=== PATIENT | female | born 1970 | race Caucasian/White ===

== ENCOUNTER 2018-02-19 12:13 | Emergency (ER) | payer MEDICAID ==
[~2018-02-19] VITALS: Ht 154.9 cm; Wt 77.3 kg
[~2018-02-19 12:13] MED LIST: CLIN150C8 PO; CLIN300C85 PO; HYDR-4383 PO
[2018-02-19 13:08] LABS: URINE HCG NEGATIVE (NEG)
[2018-02-19 13:18] LABS: UA COLLECTION TYPE CLN CATCH MIDSTREAM
[2018-02-19 13:19] LABS: CLARITY,URINE SLIGHTLY CLOUDY (Clear); COLOR,URINE ORANGE (Yellow)
[2018-02-19 13:21] LABS: BACTERIA,URINE 1+ /HPF (Neg); RBC,URINE 0-2 /HPF (0-2); SQUAMOUS EPITHELIAL CELL,UR MODERATE /LPF (FEW); WBC CLUMPS,URINE FEW /HPF (NEGATIVE)
[2018-02-19 13:22] LABS: TRICHOMONAS,URINE FEW /HPF (NEGATIVE); YEAST MODERATE /HPF (NEGATIVE)
[2018-02-19] MEDS ORDERED: CEPH500C5 PO (14:52)
[2018-02-19 15:01] VITALS: BP 117/80
== END 2018-02-19 15:01 | disposition home or self-care (01) ==
LOC: ER 12:13
DX: N39.0 Urinary tract infection, site not specified (principal); Z88.1 Allergy status to other antibiotic agents; Z79.2 Long term (current) use of antibiotics; Z79.899 Other long term (current) drug therapy
CPT/HCPCS: 81001; 81025; 87088; 99283

== ENCOUNTER 2019-10-04 10:48 | Emergency (ER) | payer MEDICAID, OTHER ==
[~2019-10-04] VITALS: Ht 152.4 cm; Wt 66.4 kg
[~2019-10-04 10:48] MED LIST changes: +CLIN-97 PO; -CLIN300C85 PO
[2019-10-04] MEDS ORDERED: TRAM50TA2 PO (11:33)
[2019-10-04] MEDS ORDERED: DOXY100C76 PO (11:33)
[2019-10-04 11:48] VITALS: BP 115/89
== END 2019-10-04 12:47 | disposition home or self-care (01) ==
LOC: ER 10:48
DX: L03.011 Cellulitis of right finger (principal); Z79.2 Long term (current) use of antibiotics
CPT/HCPCS: 29130; 99283

== ENCOUNTER 2020-01-03 16:43 | Emergency (ER) | payer MEDICAID, OTHER ==
--- NOTE | 2020-01-03 17:22 | NUR ---
Not in lobby after three calls. Discussed with Dr Chavira, no need to call pt to return
== END 2020-01-03 17:17 | disposition left against medical advice (07) ==
LOC: ER 16:44
DX: L02.91 Cutaneous abscess, unspecified (principal); Z53.21 Procedure and treatment not carried out due to patient leaving prior to being seen by health care provider

== ENCOUNTER 2020-01-09 04:48 | Emergency (ER) | payer OTHER ==
[~2020-01-09] VITALS: Ht 152.4 cm; Wt 72.7 kg
[2020-01-09 04:50] VITALS: BP 108/90
--- NOTE | 2020-01-09 06:16 | NUR ---
pt throwing a temper tantrum in the lobby because there is not a room for her yet. Informed her that is not tolerated. She asked me to call her friend Mary Lou at [phone] for her to come back and to bring her stuff and phone and cigarettes. I am calling but there is no answer and it just rings. No voicemail. Pt informed. So now she wants me to call her daughter. I did get ahold of her and she is coming. [phone] Yandy.
[2020-01-09] MEDS ORDERED: sulfamethoxazole/trimethoprim DS (800/160mg) tablet PO ONE (06:55)
[2020-01-09] MEDS ORDERED: TETanus/Pertussis (Acell)/Diphther VAC/PF (Tdap-Adult) 0.5ml syringe IMVAC ONE (06:55)
[2020-01-09] MEDS ORDERED: acetaminophen 325mg tablet PO ONE (06:55)
[2020-01-09] MEDS ORDERED: ibuprofen tablet 400 MG TABLET PO ONE (06:55)
[2020-01-09] MEDS ORDERED: bacitracin 15gm ointment TP ONE (06:55)
[2020-01-09] MEDS ORDERED: ondansetron 4mg rapidly disintigrating tab PO ONE (06:55)
[2020-01-09] MEDS ORDERED: SULF1TAB49 PO (07:38)
== END 2020-01-09 08:44 | disposition home or self-care (01) ==
LOC: ER 04:49
DX: L02.211 Cutaneous abscess of abdominal wall (principal); L03.311 Cellulitis of abdominal wall; F15.90 Other stimulant use, unspecified, uncomplicated; Z87.440 Personal history of urinary (tract) infections; Z88.1 Allergy status to other antibiotic agents; Z79.2 Long term (current) use of antibiotics
CPT/HCPCS: 10060; 90471; 90715; 99284

== ENCOUNTER 2020-03-22 15:24 | Emergency (ER) | payer MEDICAID ==
[~2020-03-22] VITALS: Ht 154.9 cm; Wt 70.0 kg
[2020-03-22 15:30] VITALS: BP 120/79
[2020-03-22] MEDS ORDERED: SULF1TAB49 PO (16:09)
[2020-03-22] MEDS ORDERED: CEPH250T PO (16:09)
== END 2020-03-22 16:40 | disposition home or self-care (01) ==
LOC: ER 15:25
DX: S81.802A Unspecified open wound, left lower leg, initial encounter (principal); B96.89 Other specified bacterial agents as the cause of diseases classified elsewhere; X58.XXXA Exposure to other specified factors, initial encounter; Y93.89 Activity, other specified; Y92.89 Other specified places as the place of occurrence of the external cause; Y99.8 Other external cause status
CPT/HCPCS: 99283

== ENCOUNTER 2021-07-03 18:45 | Emergency (ER) | payer MEDICAID ==
[~2021-07-03] VITALS: Ht 152.4 cm; Wt 81.8 kg
[2021-07-03 18:48] VITALS: BP 129/86
--- NOTE | 2021-07-03 19:22 | NUR ---
pt reports to ed with complaints of left foot pain. states that the top of her foot would burn all the way to calf. Pulses are palpable. Pt reports no injury. [id number]. Stat
--- NOTE | 2021-07-03 19:24 | NUR ---
states that it happens at night.
== END 2021-07-03 20:43 | disposition home or self-care (01) ==
LOC: ER 18:45
DX: I83.92 Asymptomatic varicose veins of left lower extremity (principal); F15.10 Other stimulant abuse, uncomplicated; Z87.448 Personal history of other diseases of urinary system; Z88.1 Allergy status to other antibiotic agents; Z79.899 Other long term (current) drug therapy
CPT/HCPCS: 99281

== ENCOUNTER 2021-07-20 12:42 | Emergency (ER) | payer MEDICAID | END 2021-07-20 15:12 | disposition left against medical advice (07) | LOC: ER 12:42 | DX: Z00.8 Encounter for other general examination (principal); Z53.21 Procedure and treatment not carried out due to patient leaving prior to being seen by health care provider ==

== ENCOUNTER 2021-11-05 10:38 | Emergency (ER) | payer MEDICAID ==
[~2021-11-05] VITALS: Ht 152.4 cm; Wt 87.5 kg
[2021-11-05] MEDS ORDERED: PANT-47 PO (15:24)
[2021-11-05] MEDS ORDERED: CHLO25CA10 PO (15:24)
[2021-11-05] MEDS ORDERED: ONDA8TAB13 PO (15:24)
[2021-11-05 15:29] VITALS: BP 129/81
== END 2021-11-05 15:39 | disposition home or self-care (01) ==
LOC: ER 10:39
DX: F10.20 Alcohol dependence, uncomplicated (principal); K29.70 Gastritis, unspecified, without bleeding; F15.10 Other stimulant abuse, uncomplicated; Z87.448 Personal history of other diseases of urinary system; Z79.899 Other long term (current) drug therapy; Z88.1 Allergy status to other antibiotic agents; Z79.1 Long term (current) use of non-steroidal anti-inflammatories (NSAID)
CPT/HCPCS: 99283; 99284